=== PATIENT | female | born 1975 | race Caucasian/White ===

== ENCOUNTER 2020-10-15 19:23 | Outpatient (REF) | payer OTHER, SELFPAY ==
[2020-10-15 20:14] LABS: COVID-19 Test Negative (Negative); IDNOW Serial# 08D9AD1C
== END 2020-10-15 19:24 | disposition home or self-care (01) ==
LOC: HO.LAB 19:23
PROVIDERS: Visit Provider Internal Medicine
DX: Z20.822 Contact with and (suspected) exposure to COVID-19 (principal)
CPT/HCPCS: 36415; 87635

== ENCOUNTER 2022-02-07 19:04 | Inpatient (IN) | payer OTHER, SELFPAY ==
--- NOTE | ~2022-02-07 | CT_ITS ---
EXAMINATION: CT ANGIOGRAM HEAD CT ANGIOGRAM NECK CLINICAL INFORMATION: Reason for Exam ?cva COMPARISON: Earlier same day noncontrast head CT TECHNIQUE: Initial noncontrast manager sap imaging of the head and neck was performed. Comparison is made with noncontrast head CT from earlier today. Test bolus sequences followed by intravenous administration 70 mL of Omnipaque 350. Helical imaging was performed in the axial plane from the aortic arch to the skull vertex. Delayed postcontrast imaging of the head was also performed. The data was processed at the staff technologist's workstation for generation of MIP sequences. Angled MIPs and volume rendered reformatted images were also generated at an offline 3D workstation. Stenoses are assessed in accordance with NASCET criteria unless otherwise indicated. DLP: 1467 mGy-cm This CT examination was performed using dose optimization techniques as appropriate, variously including the following: *Automated exposure control. *Adjustment of mA and/or kV according to patient size (this includes techniques or standardized protocols for targeted exams where dose is matched to indication/reason for exam; i.e. extremities or head). *Use of iterative reconstruction technique. FINDINGS: CT Head: There is no evidence of acute intracranial hemorrhage or edematous territorial infarction. There is no abnormal attenuation within the brain parenchyma. Marion-white matter differentiation is preserved. The ventricles are normal in size and configuration. No evidence for obstructive hydrocephalus. No abnormal mass effect or midline shift. No extra-axial fluid collections. No pathologic intra-axial enhancement or regional oligemia. No acute soft tissue or osseous abnormalities. Degenerative changes of the right temporomandibular joint. CT Neck: Thyromegaly. No discrete thyroid nodule is identified. The remaining cervical soft tissues are within normal limits. No significant abnormalities of the cervical spine. CT Upper Chest: The visualized lung apices and upper mediastinum are within normal limits. CTA of the head and neck is somewhat technically limited due to motion degradation. Neck CTA: Aortic Arch: Normal contour and caliber. Classic 3 vessel branching pattern of the aortic arch. Great Vessel Origins: No significant stenosis of the branch origins. Right Common Carotid Artery: No focal stenosis or occlusion. Cervical Right Internal Carotid Artery: Normal opacification without focal stenosis or occlusion. Left Common Carotid Artery: No focal stenosis or occlusion. Cervical Left Internal Carotid Artery: Normal opacification without focal stenosis or occlusion. Cervical Right Vertebral Artery: No focal stenosis or occlusion. Cervical Left Vertebral Artery: No focal stenosis or occlusion. Brain CTA: Intracranial Internal Carotid Arteries: No focal stenosis or occlusion. Right Anterior Cerebral Artery: Normal A1 segment. Normal opacification of the distal JOLYNN segments. Left Anterior Cerebral Artery: Normal A1 segment. Normal opacification of the distal JOLYNN segments. Anterior Communicating Artery: Normal. Right Middle Cerebral Artery: Normal M1 segment of the MCA without focal stenosis or occlusion. Normal arborization of the distal segments. Left Middle Cerebral Artery: Normal M1 segment of the MCA without focal stenosis or occlusion. Normal arborization of the distal segments. Right Vertebral Artery: Normal V4 segment. Left Vertebral Artery: Normal V4 segment. Basilar Artery: Normal without focal stenosis or occlusion. Normal appearance of the proximal superior cerebellar arteries. Right Posterior Cerebral Artery: Normal P1 segment. Normal opacification of the distal SECTION HOUSEKEEPER segments. Left Posterior Cerebral Artery: Normal P1 segment. Normal opacification of the distal SECTION HOUSEKEEPER segments. Normal opacification of the superior sagittal, straight, transverse, and sigmoid sinuses. CT/CT angio head neck stroke IMPRESSION: 1. No arterial high grade stenosis or large vessel occlusion in the head or neck. 2. Thyromegaly. Recommend correlation with thyroid function tests. Impression #[address] Peng on 02/07/2022 at 7:39 PM.
--- NOTE | ~2022-02-07 | CT_ITS ---
EXAMINATION: CT head for stroke CLINICAL INFORMATION: Reason for Exam cva/seizure?? COMPARISON: None. TECHNIQUE: Contiguous axial imaging was performed from the skull base to vertex without intravenous contrast. Sagittal and coronal reformatted images were obtained. This CT examination was performed using dose optimization techniques as appropriate, variously including the following: * Automated exposure control * Adjustment of mA and/or kV according to patient size (this includes techniques or standardized protocols for targeted exams where dose is matched to indication/reason for exam; i.e. extremities or head) Use of iterative reconstruction technique DLP: 712 mGy-cm FINDINGS: No acute osseous or soft tissue abnormality. The mastoid air cells and visualized portions of the paranasal sinuses are well aerated. There is no evidence of acute intracranial hemorrhage or territorial infarction. No abnormal mass effect or midline shift is seen. Marion to white matter differentiation is well preserved. No extra-axial fluid collections are identified. No hydrocephalus. No significant volume loss. There is no abnormal attenuation within the brain parenchyma. Small hypodensity in the inferior right basal ganglia likely represents a prominent perivascular space. CT/CT head for stroke IMPRESSION: No acute intracranial abnormality including hemorrhage, mass effect, hydrocephalus, or acute territorial edematous infarction. Above impression was communicated to Dr. Peng on 02/07/2022 at 7:22 PM
--- NOTE | 2022-02-07 19:07 | ECG_ITS ---
Test Reason : STROKE Blood Pressure : / mmHG Vent. Rate : 088 BPM Atrial Rate : 000 BPM P-R Int : 000 ms QRS Dur : 078 ms QT Int : 388 ms P-R-T Axes : 000 050 058 degrees QTc Int : 469 ms Poor data quality Possible Normal sinus rhythm No previous ECGs available Repeat EKG Referred By: Jayjay Giang Electronically Signed By:KENNEDY MOCTEZUMA MD
[2022-02-07 19:12] VITALS: BP 146/70; PULSE 76; O2SAT 98; BMI 27.4
--- NOTE | 2022-02-07 19:14 | ED_ITS ---
HPI - Neuro Symptoms/Deficit General Chief Complaint: Stroke Stated Complaint: stroke alert Time Seen by Provider: 02/07/22 19:07 Source: EMS Mode of arrival: EMS Limitations: altered mental status History of Present Illness HPI Narrative: Patient is 46 years old brought by EMS for unresponsiveness possible stroke. Patient spoke to her mother at 16:00 on phone was worried about her colonoscopy tomorrow at 18:00 and family came they found her on the floor not responding with colonic spasm of the both upper extremities pale vomiting when patient in the ER patient was having clonic movements of the both upper extremities with increased tone not communicating no incontinence , EMS found empty bottle of Pinrid in her backpack. Related Data Home Medications Medication Instructions Recorded Confirmed bimatoprost 0.01 % eye drops 1 drp ophthalmic (eye) BEDTIME 02/07/22 (Lumigan) brimonidine 0.2 % eye drops 1 drp ophthalmic (eye) BID 02/07/22 cyclosporine 0.05 % eye drops in a 1 drp ophthalmic (eye) BID 02/07/22 dropperette (Restasis) dorzolamide 22.3 mg-timolol 6.8 1 drp ophthalmic (eye) BID 02/07/22 mg/mL eye drops norgestimate-ethinyl estradiol 1 tab PO DAILY 02/07/22 0.18 mg/0.215mg/0.25mg-35 mcg(28)tablet (Tri-Estarylla) Allergies Allergy/AdvReac Type Severity Reaction Status Date / Time No Known Allergies Allergy Mild NONE Unverified 11/19/19 14:57 Environmental Allergy Mild SNEEZING, Uncoded 11/19/19 14:57 WATERY EYES Review of Systems Review of Systems: Yes Unobtainable due to mental status [facility] Past Medical History Medical History Glaucoma Social History Social History Advance Directives: No Advance Directives Information Provided: No Physical Exam Vital Signs: Vital Signs: Last Vital Signs Temp 98.2 F 02/07/22 22:39 Pulse 95 02/07/22 22:39 Resp 20 02/07/22 22:39 BP 118/97 H 02/07/22 22:39 Pulse Ox 93 02/07/22 22:39 O2 Del Method 02/07/22 22:39 BMI result Body Mass Index 27.4 Appearance: Alert. Not communicating Eyes: PERRLA, No Nystagmus ENT: Pharynx normal. Oral Mucosa moist Neck: Normal inspection. Neck supple. CVS: Normal heart rate and rhythm. Pulses normal. Respiratory: No respiratory distress. Equal air entry bilateral, no wheezing/rales/rhonchi Abdomen: Soft and nontender. Bowel sounds are present, no mass palpable, no CVA tenderness Skin: Skin warm and dry. Normal skin color. Normal skin turgor. Extremities: No lower extremity edema. No calf tenderness Neuro: Increased tone of upper extremities Course Reevaluation(s) Reevaluation #1: Patient's CT scan of the head negative for CVA on further evaluation seems like patient has anxiety panic attack after been worried for colonoscopy tomorrow IV Versed was given will re-evaluate will check labs to rule out any metabolic cause Time: 19:32 Medications Administered Generic Name Dose Route Start Last Admin Trade Name Freq PRN Reason Stop Dose Admin Enoxaparin Sodium 40 mg 02/07/22 23:45 02/08/22 00:57 Enoxaparin Sodium 40 Mg/0.4 Ml Syringe SUBCUT 40 mg Q24H NATALIE Administration Sodium Chloride 3 ml 02/08/22 00:00 02/08/22 01:03 0.9 % Sodium Chloride Flush 3 Ml Syringe IVFLUSH Not Given QSHIFT NATALIE Discontinued Medications Generic Name Dose Route Start Last Admin Trade Name Freq PRN Reason Stop Dose Admin Sodium Chloride 1,000 mls @ 999 mls/hr 02/07/22 19:15 02/07/22 22:38 Ns IV 02/07/22 20:15 Infused .Q1H1M ONE Infusion Sodium Chloride 1,000 mls @ 999 mls/hr 02/07/22 21:16 02/07/22 22:07 Ns IV 02/07/22 22:16 999 mls/hr .Q1H1M ONE Administration Iohexol 100 ml 02/07/22 19:29 02/07/22 19:29 Iohexol 350 Mg/Ml 100 Ml Infus..Btl IV 02/07/22 19:30 70 ml ONCE ONE Administration Lorazepam 1 mg 02/07/22 21:11 02/07/22 22:05 Lorazepam 1 Mg Tablet PO 02/07/22 21:12 1 mg ONCE ONE Administration Midazolam HCl 1 mg 02/07/22 19:12 02/07/22 19:34 Midazolam Hcl/Pf 2 Mg/2 Ml Vial IVPUSH 02/07/22 19:13 1 mg ONCE ONE Administration Medical Decision Making Medical Decision Making [facility] Narrative: Patient scheduled for colonoscopy history of glaucoma and anxiety drinking lot of water at home and started getting prepped for colonoscopy tomorrow noted to be having acute mental status change with vomiting at home lab workup showed sodium of 120 with low serum osmolality low urine osmolality and low sodium in the urine suggestive of increased water intake, hypotonic hyponatremia will admit patient for acute hypotension with confusion with free water restriction patient had CTH and CTA head and neck negative for acute pathology Lab Attestation: I reviewed the patient's lab results. Independent interpretation of EKG, rhythm strip, radiology study: Independent interp EKG,rhythm strip, radiology study My interpretation is Discharge Plan Discharge Clinical Impression: Encephalopathy, Acute hyponatremia Patient Disposition: Admitted As Inpatient
[2022-02-07] MEDS: iohexoL 350 MG/ML 100 ML INFUS..BTL IV (19:29)
[2022-02-07] MEDS: 0.9 % Sodium Chloride 1,000 ML 999 ML IV ×2 (19:33→22:07)
[2022-02-07] MEDS: Midazolam HCl/PF 2 MG/2 ML VIAL 1 MG IVPUSH (19:34)
[2022-02-07 19:35] LABS: Prothrombin Time Whole Bld POC 11.9 sec (11.1-13.5)
[2022-02-07 19:54] LABS: Glucose, Whole Blood 132 mg/dL (60-115)
[2022-02-07 20:30] LABS: MANUAL DIFF FLAG NO
[2022-02-07 20:45] LABS: Basophils Percent Auto 0.2 % (0-2); Hematocrit 35.4 % (37.0-47.0); Hemoglobin 13.1 g/dl (12.0-16.0); Imm Gran Abs Auto 0.03 X10*3/uL (0.00-0.03); Imm Gran Pct Auto 0.3 % (0.0-0.4); Lymphocytes Percent Auto 9.8 % (20-40); Mean Corpuscular Hemoglobin 30.2 pg (27.0-33.0); Mean Corpuscular Volume 81.6 fL (80.0-98.0); Mean Platelet Volume 11.1 fL (9.4-12.3); Monocytes Absolute Auto 0.3 X10*3/uL (0.1-1.2); Monocytes Percent Auto 2.5 % (2-11); Neutrophils Absolute Auto 8.8 x10*3/uL (2.0-8.3); Neutrophils Percent Auto 87.2 % (45-73); Platelet Count 207 X10*3/uL (160-400); Red Blood Count 4.34 X10*6/uL (4.20-5.50); Red Cell Distribution Width 11.8 % (11.0-16.0)
[2022-02-07 20:47] LABS: COVID-19 Test Negative (Negative); IDNOW Serial# BCCEAD1C
[2022-02-07 20:55] LABS: Stroke Lab Use COMPLETE
[2022-02-07 20:57] LABS: Troponin-I High Sensitivity < 3.5 ng/L (<3.5-17.0)
[2022-02-07 21:16] LABS: Anion Gap 14 (12-20); Blood Urea Nitrogen 6 mg/dL (9-16); Calcium 7.6 mg/dL (8.4-10.2); Carbon Dioxide 20 mmol/L (22-29); Chloride 89 mmol/L (96-108); Creatinine Clr Calc Pharmacy 93.4; Estimated Glomerular Filt Rate > 60; Glucose Random 115 mg/dL (60-115); Potassium 3.9 mmol/L (3.3-5.1); Sodium 120 mmol/L (135-145)
[2022-02-07 21:35] LABS: Osmolality, Serum 245 mosm/kg (281-305)
[2022-02-07 21:35] LABS: Appearance Urine Clear; Color Urine Yellow; Glucose Urine UA Negative (Negative); Leukocyte Esterase Urine Negative (Negative); Nitrite Urine Negative (Negative); PH 7.5 (5.0-9.0); Specific Gravity - Urine 1.015 (1.005-1.025); Urine Blood Negative (Negative); Urine Ketones Negative (Negative); Urine Protein Negative (Neg-Trace)
[2022-02-07 21:51] LABS: Osmolality Urine 121 mosm/kg (373-1093)
[2022-02-07] MEDS: LORazepam 1 MG TABLET PO (22:05)
[2022-02-07 22:37] VITALS: BP 132/68; PULSE 81; RESP 24; TEMP 36.6; O2SAT 94
[2022-02-07 22:39] VITALS: BP 118/97; PULSE 95; RESP 20; TEMP 36.8; O2SAT 93
--- NOTE | 2022-02-08 00:10 | P.HPHOSP_ITS ---
History of Present Illness Date of Service: 02/08/22 Chief Complaint: Altered mentation This is a 46-year-old female with pertinent history of glaucoma who was brought to the emergency department for evaluation of confusion. As per the sister at bedside, patient was not answering the phone and she used his spare villa to go into the patient's house. They found her on the floor, confused and with ?shaking/chills of the upper extremity. No tongue bite, no urinary or bowel incontinence. Patient also complains of nausea and vomiting throughout the day. Patient states she was scheduled for colonoscopy tomorrow but had not taken the prep. As per chart review, EMS found empty bottle of Pinrid? in her backpack . At the time of my evaluation, patient answering occasional questions with yes or no responses. Lethargy present and patient unable to take part in full conversation, she is oriented to place but disoriented to time. No loss of consciousness. In the emergency department sodium was found to be 120 Review of Systems Review of Systems: Yes Unobtainable due to mental status PMFSH Medical History Glaucoma Functional capacity: independent ambulation Pertinent family history: Unable to answer due to mentation Social History Advance Directives: No Advance Directives Information Provided: No Meds Allergies Allergy/AdvReac Type Severity Reaction Status Date / Time No Known Allergies Allergy Mild NONE Unverified 11/19/19 14:57 Environmental Allergy Mild SNEEZING, Uncoded 11/19/19 14:57 WATERY EYES Active Medications: Current Medications Acetaminophen (Acetaminophen 325 Mg Tablet) 650 mg PO Q6H PRN PRN Reason: Pain, Mild (Pain Scale 1-3) Enoxaparin Sodium (Enoxaparin Sodium 40 Mg/0.4 Ml Syringe) 40 mg SUBCUT Q24H NATALIE Melatonin (Melatonin 3 Mg Tablet) 6 mg PO BEDTIME PRN PRN Reason: Insomnia Ondansetron HCl (Ondansetron Hcl 4 Mg/2 Ml Vial) 4 mg IVPUSH Q8H PRN PRN Reason: Nausea and Vomiting Pharmacy Consult (Consult Rx Perform Med Rec) 1 each MISCELLANE ONCE PRN PRN Reason: Consult order Sodium Chloride (0.9 % Sodium Chloride Flush 3 Ml Syringe) 3 ml IVFLUSH QSHIFT [facility] Home Medications Medication Instructions Recorded Confirmed Last Taken Type bimatoprost 0.01 % eye drops 1 drp ophthalmic (eye) BEDTIME 02/07/22 Unknown History (Lumigan) brimonidine 0.2 % eye drops 1 drp ophthalmic (eye) BID 02/07/22 Unknown History cyclosporine 0.05 % eye drops in a 1 drp ophthalmic (eye) BID 02/07/22 Unknown History dropperette (Restasis) dorzolamide 22.3 mg-timolol 6.8 1 drp ophthalmic (eye) BID 02/07/22 Unknown History mg/mL eye drops norgestimate-ethinyl estradiol 1 tab PO DAILY 02/07/22 Unknown History 0.18 mg/0.215mg/0.25mg-35 mcg(28)tablet (Tri-Estarylla) Physical Exam Vital Signs and Narrative: Vital Signs: Last Vital Signs Temp 98.2 F 02/07/22 22:39 Pulse 95 02/07/22 22:39 Resp 20 02/07/22 22:39 BP 118/97 H 02/07/22 22:39 Pulse Ox 93 02/07/22 22:39 O2 Del Method 02/07/22 22:39 BMI result Body Mass Index 27.4 Middle-aged female lying in bed in no distress Neck supple, no JVD Regular rate and rhythm, S1-S2 heard Regular breath sounds bilaterally, no wheezing or crackles appreciated Abdomen soft nontender, no guarding, no rigidity Patient is drowsy and eye opening to verbal stimulus, intermittently answering with yes or no responses, non conversational Psych: Lethargic No pedal edema Results Labs CBC and Chem 7: 02/07/22 20:27 02/07/22 20:26 Labs: Laboratory Results - last 24 hr 02/07/22 02/07/22 02/07/22 19:09 19:22 20:26 MCV MCH MCHC RDW Plt Count MPV Immature Gran % (Auto) Neut % (Auto) Lymph % (Auto) [place] % (Auto) Eos % (Auto) Baso % (Auto) Lymph # (Auto) [place] # (Auto) Eos # (Auto) Baso # (Auto) Abs Immat Gran (auto) Absolute Neuts (auto) Absolute Nucleated RBC Nucleated RBC % (auto) PT 12.0 Whole Blood PT 11.9 INR 1.0 Whole Blood INR 1.0 Anion Gap Estim Creat Clear Calc Estimated GFR POC Glucose 132 H Random Glucose Osmolality Calcium Troponin I High Sens Hold Red Top Urine Color Urine Appearance Urine pH Ur Specific [place] Urine Protein Urine Glucose (UA) Urine Ketones Urine Blood Urine Nitrite Ur Leukocyte Esterase Urine Osmolality Ur Random Sodium COVID-19 (KHADRA) COVID-19 [employer] 02/07/22 02/07/22 02/07/22 20:26 20:26 20:26 MCV MCH MCHC RDW Plt Count MPV Immature Gran % (Auto) Neut % (Auto) Lymph % (Auto) [place] % (Auto) Eos % (Auto) Baso % (Auto) Lymph # (Auto) [place] # (Auto) Eos # (Auto) Baso # (Auto) Abs Immat Gran (auto) Absolute Neuts (auto) Absolute Nucleated RBC Nucleated RBC % (auto) PT Whole Blood PT INR Whole Blood INR Anion Gap 14 Estim Creat Clear Calc 93.4 Estimated GFR > 60 POC Glucose Random Glucose 115 Osmolality Calcium 7.6 L Troponin I High Sens < 3.5 Hold Red Top See Note Urine Color Urine Appearance Urine pH Ur Specific [place] Urine Protein Urine Glucose (UA) Urine Ketones Urine Blood Urine Nitrite Ur Leukocyte Esterase Urine Osmolality Ur Random Sodium COVID-19 (KHADRA) COVID-19 [employer] 02/07/22 02/07/22 02/07/22 20:26 20:27 20:27 MCV 81.6 MCH 30.2 MCHC 37.0 H RDW 11.8 Plt Count 207 MPV 11.1 Immature Gran % (Auto) 0.3 Neut % (Auto) 87.2 H Lymph % (Auto) 9.8 L [place] % (Auto) 2.5 Eos % (Auto) 0.0 Baso % (Auto) 0.2 Lymph # (Auto) 1.0 L [place] # (Auto) 0.3 Eos # (Auto) 0.0 Baso # (Auto) 0.0 Abs Immat Gran (auto) 0.03 Absolute Neuts (auto) 8.8 H Absolute Nucleated RBC 0.000 Nucleated RBC % (auto) 0.0 PT Whole Blood PT INR Whole Blood INR Anion Gap Estim Creat Clear Calc Estimated GFR POC Glucose Random Glucose Osmolality 245 L Calcium Troponin I High Sens Hold Red Top Urine Color Urine Appearance Urine pH Ur Specific [place] Urine Protein Urine Glucose (UA) Urine Ketones Urine Blood Urine Nitrite Ur Leukocyte Esterase Urine Osmolality Ur Random Sodium COVID-19 (KHADRA) Negative COVID-19 Clin Com See Note 02/07/22 02/07/22 02/07/22 21:29 21:29 Unknown MCV MCH MCHC RDW Plt Count MPV Immature Gran % (Auto) Neut % (Auto) Lymph % (Auto) [place] % (Auto) Eos % (Auto) Baso % (Auto) Lymph # (Auto) [place] # (Auto) Eos # (Auto) Baso # (Auto) Abs Immat Gran (auto) Absolute Neuts (auto) Absolute Nucleated RBC Nucleated RBC % (auto) PT Whole Blood PT INR Whole Blood INR Anion Gap Estim Creat Clear Calc Estimated GFR POC Glucose Random Glucose Osmolality Calcium Troponin I High Sens Hold Red Top Urine Color Yellow Urine Appearance Clear Urine pH 7.5 Ur Specific [place] 1.015 Urine Protein Negative Urine Glucose (UA) Negative Urine Ketones Negative Urine Blood Negative Urine Nitrite Negative Ur Leukocyte Esterase Negative Urine Osmolality 121 L Ur Random Sodium 26.0 COVID-19 (KHADRA) COVID-19 Clin Com Imaging Radiologist's Impressions: Impressions Head CT 02/07/22 19:13 IMPRESSION: No acute intracranial abnormality including hemorrhage, mass effect, hydrocephalus, or acute territorial edematous infarction. Above impression was communicated to Dr. Peng on 02/07/2022 at 7:22 PM Head/Neck CTA 02/07/22 19:22 IMPRESSION: 1. No arterial high grade stenosis or large vessel occlusion in the head or neck. 2. Thyromegaly. Recommend correlation with thyroid function tests. Impression #[address] Peng on 02/07/2022 at 7:39 PM. Assessment and Plan (1) Encephalopathy: Status: Acute (2) Hyponatremia: Status: Acute Plan This is a 46-year-old female with pertinent history of glaucoma who was brought to the emergency department for evaluation of confusion. #. Acute metabolic encephalopathy due to: #. Hypotonic hypovolemic hyponatremia -monitor mentation with sodium correction. Received IV crystalloids in the ER. Unclear chronicity of hyponatremia, will prevent over-correction. Monitor BNP every 4 hours. -Consider MRI and EEG if mentation does not improve with sodium correction #. Glaucoma: Continue eyedrops DVT prophylaxis: Lovenox 40 mg daily Regular diet Full code Admit as inpatient for hyponatremia with close monitoring of electrolytes and mentation. Quality Stroke Does the patient have a stroke diagnosis?: No VTE Prior VTE?: No VTE Risk Level:: Medical - moderate - high VTE Device Contraindication: Treatment Not Indicated VTE Drug Contraindication: N/A - Med Ordered
--- NOTE | 2022-02-08 00:19 | PC.NURSE ---
This armorer technician placed bedpan for patient. Patient void. Changed pad and patients vince. Boost patient with the social science research assistant from RN. Explained to patient about the purewick before placing the purewick. Patient comfortable.
--- NOTE | 2022-02-08 00:34 | PC.NURSE ---
Pt. resting in bed with sister at bedside. Pt. is alert and oriented X4, however, doesn't recollect all the events that brought her to the ER. Pt. requesting to urinate frequently. D/t risk for skin breakdown, purewick now in place. threat monitoring analyst in place.
--- NOTE | 2022-02-08 00:42 | PC.NURSE ---
Pt. has a bed on med-surge. [id number]. Called for report. Floor RN will call for report.
[2022-02-08] MEDS: Enoxaparin Sodium 40 MG/0.4 ML SYRINGE SUBCUT (00:57)
[2022-02-08 01:12] LABS: Anion Gap 15 (12-20); Carbon Dioxide 18 mmol/L (22-29); Chloride 100 mmol/L (96-108); Potassium 3.8 mmol/L (3.3-5.1); Sodium 129 mmol/L (135-145)
[2022-02-08 01:34] VITALS: BMI 34.2
[2022-02-08 01:42] VITALS: BP 118/55; PULSE 96; RESP 22; TEMP 37.3; O2SAT 94
[2022-02-08 02:30] LABS: Anion Gap 14 (12-20); Blood Urea Nitrogen 5 mg/dL (9-16); Calcium 7.7 mg/dL (8.4-10.2); Carbon Dioxide 19 mmol/L (22-29); Chloride 101 mmol/L (96-108); Creatinine Clr Calc Pharmacy 98.6; Estimated Glomerular Filt Rate > 60; Glucose Random 129 mg/dL (60-115); Potassium 3.7 mmol/L (3.3-5.1); Sodium 130 mmol/L (135-145)
[2022-02-08 04:00] VITALS: RESP 20
[2022-02-08 07:12] VITALS: BP 118/55; PULSE 101; RESP 16; TEMP 36.6; O2SAT 96
[2022-02-08 07:27] LABS: MANUAL DIFF FLAG NO
[2022-02-08 07:35] LABS: Basophils Percent Auto 0.3 % (0-2); Hematocrit 33.6 % (37.0-47.0); Hemoglobin 12.1 g/dl (12.0-16.0); Imm Gran Abs Auto 0.07 X10*3/uL (0.00-0.03); Imm Gran Pct Auto 0.4 % (0.0-0.4); Mean Corpuscular Hemoglobin 30.3 pg (27.0-33.0); Mean Corpuscular Volume 84.2 fL (80.0-98.0); Mean Platelet Volume 11.7 fL (9.4-12.3); Monocytes Absolute Auto 0.8 X10*3/uL (0.1-1.2); Monocytes Percent Auto 5.3 % (2-11); Platelet Count 180 X10*3/uL (160-400); Red Blood Count 3.99 X10*6/uL (4.20-5.50)
[2022-02-08 08:18] LABS: Anion Gap 13 (12-20); Blood Urea Nitrogen 5 mg/dL (9-16); Calcium 7.9 mg/dL (8.4-10.2); Carbon Dioxide 20 mmol/L (22-29); Chloride 105 mmol/L (96-108); Creatinine Clr Calc Pharmacy 98.6; Estimated Glomerular Filt Rate > 60; Glucose Random 122 mg/dL (60-115); Potassium 3.5 mmol/L (3.3-5.1); Sodium 134 mmol/L (135-145)
[2022-02-08] MEDS: 0.9 % Sodium Chloride Flush 3 ML SYRINGE IVFLUSH (08:25)
[2022-02-08 09:31] LABS: Alanine Aminotransferase 11 U/L (0-31); Albumin Level 3.3 g/dL (3.5-5.0); Alkaline Phosphatase 75 U/L (39-117); Aspartate Amino Transferase 16 U/L (5-31); Bilirubin Direct 0.3 mg/dL (0.0-0.5); Bilirubin Total 0.9 mg/dL (0.0-1.0); Total Protein 5.8 g/dL (6.5-8.0)
[2022-02-08] MEDS: Dextrose 5 % 1,000 ML 100 ML IVCONT (09:45)
[2022-02-08] MEDS: Cholecalciferol (Vitamin D3) 25 MCG TABLET PO (09:47)
[2022-02-08 09:53] LABS: TSH reflex Free T4 0.36 uIU/mL (0.32-4.0)
--- NOTE | 2022-02-08 10:01 | MHC.CM.PN ---
PATIENT IS FULLY INDEPENDENT WITH ALL ADLS. NO DME OR VNA SHE WAS SCHEDULED FOR A COLONOSCOPY AND DRANK WAY TOO MUCH WATER HER FATHER IS HCP AND A COPY IS REQUESTED. PLAN IS HOME FRIDAY 02/09 AND SHE HAS A RIDE HOME. COVID VACCINATED. PCP IS DIOGO CHRISTIANSEN OF [facility] IN [place] QUICK TASK UPDATE MADE FOR CM OFFICE.
[2022-02-08 11:03] LABS: Osmolality, Serum 284 mosm/kg (281-305)
[2022-02-08 11:05] LABS: Acetaminophen LAB < 1 mcg/mL (<30); Salicylate < 5.0 mg/dL (15-30); Sodium 137 mmol/L (135-145)
--- NOTE | 2022-02-08 11:37 | P.CONNP_ITS ---
History of Present Illness Reason for Consult Consult date: 02/08/22 Chief Complaint Chief complaint: Altered Mentation PMFSH Past Medical History Medical History Glaucoma Functional capacity: independent ambulation Social History Social History Household Members: None Housing: Apartment Patient Tobacco Use Status: Former Tobacco user service: No Current occupational status: employed Meds Allergies Allergy/AdvReac Type Severity Reaction Status Date / Time No Known Allergies Allergy Mild NONE Unverified 11/19/19 14:57 Environmental Allergy Mild SNEEZING, Uncoded 11/19/19 14:57 WATERY EYES Active Medications: Current Medications Acetaminophen (Acetaminophen 325 Mg Tablet) 650 mg PO Q6H PRN PRN Reason: Pain, Mild (Pain Scale 1-3) Brimonidine Tartrate (Brimonidine Tartrate 0.2% Oph 5 Ml Bottle) 1 drop EYE- BOTH BID NATALIE Dorzolamide/Timolol (Dorzolamide/Timolo 2.23%/0.68% 10 Ml Drbtl) 1 drop EYE- BOTH BID NATALIE Enoxaparin Sodium (Enoxaparin Sodium 40 Mg/0.4 Ml Syringe) 40 mg SUBCUT Q24H [facility] Last Admin: 02/08/22 00:57 Dose: 40 mg Dextrose (D5w) 1,000 mls @ 100 mls/hr IVCONT .Q10H [facility] Last Admin: 02/08/22 09:45 Dose: 100 mls/hr Desmopressin Acetate 2 mcg/ (Sodium Chloride) 50.5 mls @ 100 mls/hr IV ONCE ONE Stop: 02/08/22 12:00 Melatonin (Melatonin 3 Mg Tablet) 6 mg PO BEDTIME PRN PRN Reason: Insomnia Non-Formulary Medication (Bimatoprost [Lumigan]) 1 drop EYE-BOTH BEDTIME NATALIE Non-Formulary Medication (Cyclosporine [Restasis]) 1 drop EYE-BOTH BID NATALIE Non-Formulary Medication (Norgestimate-Ethinyl Estradiol [Tri-Estarylla]) 1 tab PO DAILY NATALIE Ondansetron HCl (Ondansetron Hcl 4 Mg/2 Ml Vial) 4 mg IVPUSH Q8H PRN PRN Reason: Nausea and Vomiting Pharmacy Consult (Consult Rx Perform Med Rec) 1 each MISCELLANE ONCE PRN PRN Reason: Consult order Sodium Chloride (0.9 % Sodium Chloride Flush 3 Ml Syringe) 3 ml IVFLUSH QSHIFT [facility] Last Admin: 02/08/22 08:25 Dose: 3 ml Vitamin D (Cholecalciferol (Vitamin D3) 25 Mcg Tablet) 25 mcg PO DAILY [facility] Last Admin: 02/08/22 09:47 Dose: 25 mcg Home Medications Medication Instructions Recorded Confirmed Last Taken Type bimatoprost 0.01 % eye drops 1 drp ophthalmic (eye) BEDTIME 02/07/22 02/08/22 02/07/22 History (Lumigan) brimonidine 0.2 % eye drops 1 drp ophthalmic (eye) BID 02/07/22 02/08/22 02/07/22 History cyclosporine 0.05 % eye drops in a 1 drp ophthalmic (eye) BID 02/07/22 02/08/22 02/07/22 History dropperette (Restasis) dorzolamide 22.3 mg-timolol 6.8 1 drp ophthalmic (eye) BID 02/07/22 02/08/22 02/07/22 History mg/mL eye drops norgestimate-ethinyl estradiol 1 tab PO DAILY 02/07/22 02/08/22 02/07/22 History 0.18 mg/0.215mg/0.25mg-35 mcg(28)tablet (Tri-Estarylla) cholecalciferol (vitamin D3) 25 25 mcg PO DAILY 02/08/22 02/08/22 02/07/22 History mcg (1,000 unit) tablet Physical Exam Vital Signs: Last Vital Signs Temp 97.9 F 02/08/22 07:12 Pulse 101 H 02/08/22 07:12 Resp 16 02/08/22 07:12 BP 118/55 L 02/08/22 07:12 Pulse Ox 96 02/08/22 07:12 O2 Del Method 02/08/22 07:12 BMI result Body Mass Index 34.2 Results Lab Results Result Diagrams: 02/09/22 05:50 02/10/22 05:46 Lab results: Chemistry 02/07/22 02/08/22 02/08/22 20:26 00:42 02:03 Sodium 120 L* 129 L 130 L Potassium 3.9 3.8 3.7 Carbon Dioxide 20 L 18 L 19 L BUN 6 L 5 L Creatinine 0.68 0.72 Calcium 7.6 L 7.7 L 02/08/22 02/08/22 06:39 10:03 Sodium 134 L 137 Potassium 3.5 Carbon Dioxide 20 L BUN 5 L Creatinine 0.72 Calcium 7.9 L Hematology 02/07/22 02/08/22 20:27 06:39 WBC 10.0 16.0 H Hgb 13.1 12.1 Plt Count 207 180 Urinalysis 02/07/22 Unknown Urine Color Yellow Urine Appearance Clear Urine pH 7.5 Ur Specific [place] 1.015 Urine Protein Negative Urine Glucose (UA) Negative Urine Ketones Negative Urine Blood Negative Urine Nitrite Negative Ur Leukocyte Esterase Negative Urine Studies 02/07/22 21:29 Urine Osmolality 121 L Assessment and Plan (1) Hyponatremia: Status: Acute Plan SEVERE HYPONATREMIA DUE TO EXCESSIVE FREE WATER INTAKE IN A SETTING OF NAUSEA Low urine Osm/dilute urine : supports a dilute urine She is spontaneously excreting free water and correcting pNa At risk for rapid correction Start D5W Add 1 dose of DDAVP Check pNa Q 1-2 hrs Goal to keep pNa between 130- 13 over the next 24 hrs Discussed with team Consult dictated Thanks Procedures Date of Service Date of Service: 02/08/22
[2022-02-08 12:14] LABS: Cortisol Random 23.1 ug/dL
--- NOTE | 2022-02-08 13:22 | CONS_ITS ---
DATE OF SERVICE: 02/08/2022 REASON FOR CONSULT: I was called to see this patient to assist in management of hyponatremia. HISTORY OF PRESENT ILLNESS: To summarize, Rita is a pleasant 46-year-old woman with a history of glaucoma. She had no other renal issues. She was preparing for a colonoscopy and she had to get up on herself and started drinking lots of water. She was found by her sister at home and she was brought to the hospital because of confusion. At the time of admission, serum sodium was 120. I was called to see her this morning, and by that time, the serum sodium has already increased to 130 millimoles within 10 hours. I spoke to the hospitalist and we started her on D5W and ordered a stat sodium level. ONGOING MEDICAL PROBLEMS: Include history of glaucoma. PAST SURGICAL HISTORY: Unremarkable. ALLERGIES: NO KNOWN DRUG ALLERGIES. MEDICATIONS: At home included eye drops for glaucoma and control pills. Current medications were reviewed. REVIEW OF SYSTEMS: Revealed nausea and vomiting throughout the day. She did have confusion at the time of admission, which is improved. At present. She has no headache or nausea. No fever. She denies any polyuria or polydipsia. No diarrhea. She did have some constipation prior to admission. No fever. No weight loss. PHYSICAL EXAMINATION: GENERAL: Today, Rita appears comfortable, not in distress. NECK: Supple. No JVD. HEENT: Mucosa is moist. LUNGS: Air entry equal. No rales. HEART: S1, S2 heard. No gallop or rub. ABDOMEN: Soft, nontender. EXTREMITIES: No dependent edema. No rash. No clubbing. NEURO: She is alert and awake. Able to answer questions relevantly. No focal motor deficit. Gait was not tested. No involuntary movements. LABORATORY DATA: Sodium 134, potassium 2.3, BUN 5, creatinine 0.72, blood sugar 122, calcium 7.9. TSH is 0.36. Urine studies showed urine osmolality 121, no protein or blood. Hemoglobin 12.1, WBC 16.0. IMPRESSION: 46-year-old woman with acute hyponatremia. Hyponatremia is most likely due to excessive free water intake in the setting of nausea. Nausea is a potent stimulus for antidiuretic hormone. Again this background when she has been drinking lots of free water, she has developed hyponatremia. The urine osmolality is appropriately low at 121, and she is excreting free water spontaneously. She is at a risk of rapid correction. The repeat serum sodium was 137, therefore we will continue with the D5W and ordered DDAVP. The goal at this point is to slow the correction of serum sodium. We will continue with the D5W for now and check serum sodium every 1-2 hours. I have spoken to the hospitalist and ordered a dose of DDAVP. The goal is to maintain the serum sodium less than 135 for the next 24 hours. We will follow along with the team. Jorge Luis Lara MD BPA/MODL / [id number]
[2022-02-08 14:35] LABS: Sodium 139 mmol/L (135-145)
[2022-02-08 15:49] VITALS: BP 113/55; PULSE 103; RESP 17; TEMP 36.6; O2SAT 96
--- NOTE | 2022-02-08 16:14 | P.PNIM_ITS ---
Subjective Subjective Date of Service: 02/08/22 Interval History: Pt alert, awake now No recall of how she ended up on the floor No oral trauma No incontinence No toxic ingestions No hx seizures Na correcting too fast She drinks a lot of water and Gatorade Review of Systems Review of Systems: Yes all other systems are reviewed and are negative Physical Exam Vital Signs: Vital Signs: Last Vital Signs Temp 97.9 F 02/08/22 15:49 Pulse 103 H 02/08/22 15:49 Resp 17 02/08/22 15:49 BP 113/55 L 02/08/22 15:49 Pulse Ox 96 02/08/22 15:49 O2 Del Method 02/08/22 15:49 BMI result Body Mass Index 34.2 Gen: in no acute distress HEENT: sclera anicteric, moist mucus membranes Neck: supple Lungs: clear to auscultation bilaterally Heart: regular rate and rhythm, no murmurs Abd: soft, non-tender, non-distended Ext: no edema Skin: warm/well-perfused Neuro: alert and oriented x3, no focal findings Psych: appropriate affect Objective Data Active Medications Acetaminophen (Acetaminophen 325 Mg Tablet) 650 mg PO Q6H PRN PRN Reason: Pain, Mild (Pain Scale 1-3) Brimonidine Tartrate (Brimonidine Tartrate 0.2% Oph 5 Ml Bottle) 1 drop EYE- BOTH BID NATALIE Dorzolamide/Timolol (Dorzolamide/Timolo 2.23%/0.68% 10 Ml Drbtl) 1 drop EYE- BOTH BID NATALIE Enoxaparin Sodium (Enoxaparin Sodium 40 Mg/0.4 Ml Syringe) 40 mg SUBCUT Q24H [facility] Last Admin: 02/08/22 00:57 Dose: 40 mg Documented By: CRESENCIO Dextrose (D5w) 1,000 mls @ 150 mls/hr IVCONT .Q6H40M [facility] Last Infusion: 02/08/22 15:26 Dose: 150 mls/hr Documented By: CLIFTON Melatonin (Melatonin 3 Mg Tablet) 6 mg PO BEDTIME PRN PRN Reason: Insomnia Non-Formulary Medication (Bimatoprost [Lumigan]) 1 drop EYE-BOTH BEDTIME NATALIE Non-Formulary Medication (Cyclosporine [Restasis]) 1 drop EYE-BOTH BID NATALIE Non-Formulary Medication (Norgestimate-Ethinyl Estradiol [Tri-Estarylla]) 1 tab PO DAILY [facility] Ondansetron HCl (Ondansetron Hcl 4 Mg/2 Ml Vial) 4 mg IVPUSH Q8H PRN PRN Reason: Nausea and Vomiting Pharmacy Consult (Consult Rx Perform Med Rec) 1 each MISCELLANE ONCE PRN PRN Reason: Consult order Sodium Chloride (0.9 % Sodium Chloride Flush 3 Ml Syringe) 3 ml IVFLUSH QSHIFT [facility] Last Admin: 02/08/22 08:25 Dose: 3 ml Documented By: CLIFTON Vitamin D (Cholecalciferol (Vitamin D3) 25 Mcg Tablet) 25 mcg PO DAILY [facility] Last Admin: 02/08/22 09:47 Dose: 25 mcg Documented By: CLIFTON Labs CBC & Chem 7: 02/08/22 06:39 02/08/22 14:00 Labs: Laboratory Results - last 24 hr 02/07/22 02/07/22 02/07/22 19:09 19:22 20:26 MCV MCH MCHC RDW Plt Count MPV Immature Gran % (Auto) Neut % (Auto) Lymph % (Auto) [place] % (Auto) Eos % (Auto) Baso % (Auto) Lymph # (Auto) [place] # (Auto) Eos # (Auto) Baso # (Auto) Abs Immat Gran (auto) Absolute Neuts (auto) Absolute Nucleated RBC Nucleated RBC % (auto) PT 12.0 Whole Blood PT 11.9 INR 1.0 Whole Blood INR 1.0 Anion Gap Estim Creat Clear Calc Estimated GFR POC Glucose 132 H Random Glucose Osmolality Calcium Total Bilirubin Direct Bilirubin AST ALT Alkaline Phosphatase Troponin I High Sens Total Protein Albumin TSH Random Cortisol Hold Red Top Urine Color Urine Appearance Urine pH Ur Specific [place] Urine Protein Urine Glucose (UA) Urine Ketones Urine Blood Urine Nitrite Ur Leukocyte Esterase Urine Osmolality Ur Random Sodium Salicylates Acetaminophen COVID-19 (KHADRA) COVID-19 Clin Com 02/07/22 02/07/22 02/07/22 20:26 20:26 20:26 MCV MCH MCHC RDW Plt Count MPV Immature Gran % (Auto) Neut % (Auto) Lymph % (Auto) [place] % (Auto) Eos % (Auto) Baso % (Auto) Lymph # (Auto) [place] # (Auto) Eos # (Auto) Baso # (Auto) Abs Immat Gran (auto) Absolute Neuts (auto) Absolute Nucleated RBC Nucleated RBC % (auto) PT Whole Blood PT INR Whole Blood INR Anion Gap 14 Estim Creat Clear Calc 93.4 Estimated GFR > 60 POC Glucose Random Glucose 115 Osmolality Calcium 7.6 L Total Bilirubin Direct Bilirubin AST ALT Alkaline Phosphatase Troponin I High Sens < 3.5 Total Protein Albumin TSH Random Cortisol Hold Red Top See Note Urine Color Urine Appearance Urine pH Ur Specific [place] Urine Protein Urine Glucose (UA) Urine Ketones Urine Blood Urine Nitrite Ur Leukocyte Esterase Urine Osmolality Ur Random Sodium Salicylates Acetaminophen COVID-19 (KHADRA) COVID-19 [employer] Com 02/07/22 02/07/22 02/07/22 20:26 20:27 20:27 MCV 81.6 MCH 30.2 MCHC 37.0 H RDW 11.8 Plt Count 207 MPV 11.1 Immature Gran % (Auto) 0.3 Neut % (Auto) 87.2 H Lymph % (Auto) 9.8 L [place] % (Auto) 2.5 Eos % (Auto) 0.0 Baso % (Auto) 0.2 Lymph # (Auto) 1.0 L [place] # (Auto) 0.3 Eos # (Auto) 0.0 Baso # (Auto) 0.0 Abs Immat Gran (auto) 0.03 Absolute Neuts (auto) 8.8 H Absolute Nucleated RBC 0.000 Nucleated RBC % (auto) 0.0 PT Whole Blood PT INR Whole Blood INR Anion Gap Estim Creat Clear Calc Estimated GFR POC Glucose Random Glucose Osmolality 245 L Calcium Total Bilirubin Direct Bilirubin AST ALT Alkaline Phosphatase Troponin I High Sens Total Protein Albumin TSH Random Cortisol Hold Red Top Urine Color Urine Appearance Urine pH Ur Specific [place] Urine Protein Urine Glucose (UA) Urine Ketones Urine Blood Urine Nitrite Ur Leukocyte Esterase Urine Osmolality Ur Random Sodium Salicylates Acetaminophen COVID-19 (KHADRA) Negative COVID-19 [email or web address] See Note 02/07/22 02/07/22 02/07/22 21:29 21:29 Unknown MCV MCH MCHC RDW Plt Count MPV Immature Gran % (Auto) Neut % (Auto) Lymph % (Auto) [place] % (Auto) Eos % (Auto) Baso % (Auto) Lymph # (Auto) [place] # (Auto) Eos # (Auto) Baso # (Auto) Abs Immat Gran (auto) Absolute Neuts (auto) Absolute Nucleated RBC Nucleated RBC % (auto) PT Whole Blood PT INR Whole Blood INR Anion Gap Estim Creat Clear Calc Estimated GFR POC Glucose Random Glucose Osmolality Calcium Total Bilirubin Direct Bilirubin AST ALT Alkaline Phosphatase Troponin I High Sens Total Protein Albumin TSH Random Cortisol Hold Red Top Urine Color Yellow Urine Appearance Clear Urine pH 7.5 Ur Specific [place] 1.015 Urine Protein Negative Urine Glucose (UA) Negative Urine Ketones Negative Urine Blood Negative Urine Nitrite Negative Ur Leukocyte Esterase Negative Urine Osmolality 121 L Ur Random Sodium 26.0 Salicylates Acetaminophen COVID-19 (KHADRA) COVID-19 [email or web address] 02/08/22 02/08/22 02/08/22 00:42 02:03 06:39 MCV 84.2 MCH 30.3 MCHC 36.0 H RDW 12.0 Plt Count 180 MPV 11.7 Immature Gran % (Auto) 0.4 Neut % (Auto) 88.0 H Lymph % (Auto) 6.0 L [place] % (Auto) 5.3 Eos % (Auto) 0.0 Baso % (Auto) 0.3 Lymph # (Auto) 1.0 L [place] # (Auto) 0.8 Eos # (Auto) 0.0 Baso # (Auto) 0.0 Abs Immat Gran (auto) 0.07 H Absolute Neuts (auto) 14.0 H Absolute Nucleated RBC 0.000 Nucleated RBC % (auto) 0.0 PT Whole Blood PT INR Whole Blood INR Anion Gap 15 14 Estim Creat Clear Calc 98.6 Estimated GFR > 60 POC Glucose Random Glucose 129 H Osmolality Calcium 7.7 L Total Bilirubin 0.9 Direct Bilirubin 0.3 AST 16 ALT 11 Alkaline Phosphatase 75 Troponin I High Sens Total Protein 5.8 L Albumin 3.3 L TSH Random Cortisol Hold Red Top Urine Color Urine Appearance Urine pH Ur Specific [place] Urine Protein Urine Glucose (UA) Urine Ketones Urine Blood Urine Nitrite Ur Leukocyte Esterase Urine Osmolality Ur Random Sodium Salicylates Acetaminophen COVID-19 (KHADRA) COVID-19 [email or web address] 02/08/22 02/08/22 02/08/22 06:39 10:03 10:03 MCV MCH MCHC RDW Plt Count MPV Immature Gran % (Auto) Neut % (Auto) Lymph % (Auto) [place] % (Auto) Eos % (Auto) Baso % (Auto) Lymph # (Auto) [place] # (Auto) Eos # (Auto) Baso # (Auto) Abs Immat Gran (auto) Absolute Neuts (auto) Absolute Nucleated RBC Nucleated RBC % (auto) PT Whole Blood PT INR Whole Blood INR Anion Gap 13 Estim Creat Clear Calc 98.6 Estimated GFR > 60 POC Glucose Random Glucose 122 H Osmolality Calcium 7.9 L Total Bilirubin Direct Bilirubin AST ALT Alkaline Phosphatase Troponin I High Sens Total Protein Albumin TSH 0.36 Random Cortisol 23.1 Hold Red Top Urine Color Urine Appearance Urine pH Ur Specific [place] Urine Protein Urine Glucose (UA) Urine Ketones Urine Blood Urine Nitrite Ur Leukocyte Esterase Urine Osmolality Ur Random Sodium Salicylates < 5.0 L Acetaminophen < 1 COVID-19 (KHADRA) COVID-19 Clin Com 02/08/22 10:04 MCV MCH MCHC RDW Plt Count MPV Immature Gran % (Auto) Neut % (Auto) Lymph % (Auto) [place] % (Auto) Eos % (Auto) Baso % (Auto) Lymph # (Auto) [place] # (Auto) Eos # (Auto) Baso # (Auto) Abs Immat Gran (auto) Absolute Neuts (auto) Absolute Nucleated RBC Nucleated RBC % (auto) PT Whole Blood PT INR Whole Blood INR Anion Gap Estim Creat Clear Calc Estimated GFR POC Glucose Random Glucose Osmolality 284 Calcium Total Bilirubin Direct Bilirubin AST ALT Alkaline Phosphatase Troponin I High Sens Total Protein Albumin TSH Random Cortisol Hold Red Top Urine Color Urine Appearance Urine pH Ur Specific [place] Urine Protein Urine Glucose (UA) Urine Ketones Urine Blood Urine Nitrite Ur Leukocyte Esterase Urine Osmolality Ur Random Sodium Salicylates Acetaminophen COVID-19 (KHADRA) COVID-19 Clin Com Assessment and Plan (1) Hyponatremia: Status: Acute (2) Encephalopathy: Status: Acute Plan d#1 46yo F with glaucoma presenting after being found confused on the floor, noted to have euvolemic hyponatremia with dilute urine likely due to primary polydipsia # hypoNa - corrected too quickly, 17mEq/12hr [had been given 2L NS in ED]. started D5W 100 mL/hr, increased to 150 mL/hr and given 2 mcg ddAVP IV. Nephrology following. continue q4h sodium checks. # toxic-metabolic encephalopathy - suspect she had a hyponatremic seizure. neurologically normal at this time. monitor. # glaucoma - continue eye drops # VTE ppx: LMWH In my clinical judgment, the patient requires continued inpatient hospitalization for the following reasons: hypoNa, severe Quality Stroke Does the patient have a stroke diagnosis?: No VTE Prior VTE?: No VTE Risk Level:: Medical - moderate - high VTE Device Contraindication: Treatment Not Indicated VTE Drug Contraindication: N/A - Med Ordered
[2022-02-08 16:53] LABS: Sodium 138 mmol/L (135-145)
[2022-02-08] MEDS: Dextrose 5 % 1,000 ML 150 ML IVCONT (18:31)
[2022-02-08 19:03] LABS: Sodium 137 mmol/L (135-145)
[2022-02-08 19:49] VITALS: BP 126/60; PULSE 95; RESP 18; TEMP 37.1; O2SAT 98
[2022-02-08 20:59] LABS: Sodium 135 mmol/L (135-145)
[2022-02-08] MEDS: Brimonidine Tartrate 0.2% Oph 5 ML BOTTLE 1 DROP EYE-BOTH (21:04)
[2022-02-08] MEDS: Dorzolamide/Timolo 2.23%/0.68% 10 ML DRBTL 1 DROP EYE-BOTH (21:04)
[2022-02-08 22:25] LABS: Sodium 135 mmol/L (135-145)
[2022-02-09] MEDS: Enoxaparin Sodium 40 MG/0.4 ML SYRINGE SUBCUT (00:42)
[2022-02-09] MEDS: Dextrose 5 % 1,000 ML 150 ML IVCONT ×2 (00:43→06:40)
[2022-02-09 02:09] LABS: Sodium 131 mmol/L (135-145)
[2022-02-09 03:18] VITALS: BP 116/59; PULSE 77; RESP 14; TEMP 37.3; O2SAT 98
[2022-02-09 06:39] LABS: Hematocrit 30.6 % (37.0-47.0); Hemoglobin 10.5 g/dl (12.0-16.0); Mean Corpuscular HGB Conc 34.3 g/dl (31.0-35.0); Mean Corpuscular Hemoglobin 29.9 pg (27.0-33.0); Mean Corpuscular Volume 87.2 fL (80.0-98.0); Mean Platelet Volume 11.9 fL (9.4-12.3); Platelet Count 145 X10*3/uL (160-400); Red Blood Count 3.51 X10*6/uL (4.20-5.50); Red Cell Distribution Width 12.3 % (11.0-16.0); White Blood Count 9.2 X10*3/uL (4.8-10.8)
[2022-02-09 07:06] VITALS: BP 115/58; PULSE 87; RESP 18; TEMP 36.6; O2SAT 95
[2022-02-09 07:23] LABS: Anion Gap 7 (12-20); Blood Urea Nitrogen 7 mg/dL (9-16); Calcium 7.6 mg/dL (8.4-10.2); Carbon Dioxide 22 mmol/L (22-29); Chloride 104 mmol/L (96-108); Creatinine Clr Calc Pharmacy 102.9; Estimated Glomerular Filt Rate > 60; Glucose Random 135 mg/dL (60-115); Potassium 3.2 mmol/L (3.3-5.1); Sodium 130 mmol/L (135-145)
[2022-02-09] MEDS: 0.9 % Sodium Chloride Flush 3 ML SYRINGE IVFLUSH ×3 (08:51→21:09)
[2022-02-09] MEDS: Potassium Chloride ER 20 MEQ TAB.ER.PRT 40 MEQ PO (08:51)
[2022-02-09] MEDS: Brimonidine Tartrate 0.2% Oph 5 ML BOTTLE 1 DROP EYE-BOTH ×2 (08:52→20:57)
[2022-02-09] MEDS: Dorzolamide/Timolo 2.23%/0.68% 10 ML DRBTL 1 DROP EYE-BOTH ×2 (08:52→20:58)
[2022-02-09] MEDS: Cholecalciferol (Vitamin D3) 25 MCG TABLET PO (08:52)
--- NOTE | 2022-02-09 12:41 | P.PNIM_ITS ---
Subjective Subjective Date of Service: 02/09/22 Interval History: alert, oriented Na peaked at 139, down to 130 Review of Systems Review of Systems: Yes all other systems are reviewed and are negative Physical Exam Vital Signs: Vital Signs: Last Vital Signs Temp 97.9 F 02/09/22 07:06 Pulse 87 02/09/22 07:06 Resp 18 02/09/22 07:06 BP 115/58 L 02/09/22 07:06 Pulse Ox 95 02/09/22 07:06 O2 Del Method 02/09/22 07:06 BMI result Body Mass Index 34.2 Gen: in no acute distress HEENT: sclera anicteric, moist mucus membranes Neck: supple Lungs: clear to auscultation bilaterally Heart: regular rate and rhythm, no murmurs Abd: soft, non-tender, non-distended Ext: no edema Skin: warm/well-perfused Neuro: alert and oriented x3, no focal findings Psych: appropriate affect Objective Data Active Medications Acetaminophen (Acetaminophen 325 Mg Tablet) 650 mg PO Q6H PRN PRN Reason: Pain, Mild (Pain Scale 1-3) Brimonidine Tartrate (Brimonidine Tartrate 0.2% Oph 5 Ml Bottle) 1 drop EYE- BOTH BID [facility] Last Admin: 02/09/22 08:52 Dose: 1 drop Documented By: JANNETTE Dorzolamide/Timolol (Dorzolamide/Timolo 2.23%/0.68% 10 Ml Drbtl) 1 drop EYE- BOTH BID [facility] Last Admin: 02/09/22 08:52 Dose: 1 drop Documented By: JANNETTE Enoxaparin Sodium (Enoxaparin Sodium 40 Mg/0.4 Ml Syringe) 40 mg SUBCUT Q24H [facility] Last Admin: 02/09/22 00:42 Dose: 40 mg Documented By: BLAIR Melatonin (Melatonin 3 Mg Tablet) 6 mg PO BEDTIME PRN PRN Reason: Insomnia Non-Formulary Medication (Bimatoprost [Lumigan]) 1 drop EYE-BOTH BEDTIME [facility] Non-Formulary Medication (Cyclosporine [Restasis]) 1 drop EYE-BOTH BID [facility] Non-Formulary Medication (Norgestimate-Ethinyl Estradiol [Tri-Estarylla]) 1 tab PO DAILY [facility] Ondansetron HCl (Ondansetron Hcl 4 Mg/2 Ml Vial) 4 mg IVPUSH Q8H PRN PRN Reason: Nausea and Vomiting Pharmacy Consult (Consult Rx Perform Med Rec) 1 each MISCELLANE ONCE PRN PRN Reason: Consult order Sodium Chloride (0.9 % Sodium Chloride Flush 3 Ml Syringe) 3 ml IVFLUSH QSHIFT [facility] Last Admin: 02/09/22 08:51 Dose: 3 ml Documented By: JANNETTE Vitamin D (Cholecalciferol (Vitamin D3) 25 Mcg Tablet) 25 mcg PO DAILY [facility] Last Admin: 02/09/22 08:52 Dose: 25 mcg Documented By: JANNETTE Labs CBC & Chem 7: 02/09/22 05:50 02/09/22 05:50 Labs: Laboratory Results - last 24 hr 02/09/22 02/09/22 05:50 05:50 MCV 87.2 MCH 29.9 MCHC 34.3 RDW 12.3 Plt Count 145 L MPV 11.9 Absolute Nucleated RBC 0.000 Nucleated RBC % (auto) 0.0 Anion Gap 7 L Estim Creat Clear Calc 102.9 Estimated GFR > 60 Random Glucose 135 H Calcium 7.6 L Assessment and Plan (1) Hyponatremia: Status: Acute (2) Encephalopathy: Status: Acute Plan d#2 46yo F with glaucoma presenting after being found confused on the floor, noted to have euvolemic hyponatremia with dilute urine likely due to primary polydips ia # hypoNa - corrected too quickly yesterday so was started on D5W and given ddAVP. Na now appropriately 130. recheck this afternoon and again tomorrow AM. fluid- restrict to 1000 mL/d # toxic-metabolic encephalopathy - suspect she had a hyponatremic seizure. neurologically normal at this time. continue monitor. # glaucoma - continue eye drops # VTE ppx: LMWH # dispo: anticipate home tomorrow In my clinical judgment, the patient requires continued inpatient hospitalization for the following reasons: hypoNa Quality Stroke Does the patient have a stroke diagnosis?: No VTE Prior VTE?: No VTE Risk Level:: Medical - moderate - high VTE Device Contraindication: Treatment Not Indicated VTE Drug Contraindication: N/A - Med Ordered
--- NOTE | 2022-02-09 14:52 | MHC.CM.PN ---
HOME SATURDAY - SELF CARE
[2022-02-09 15:31] LABS: Sodium 140 mmol/L (135-145)
[2022-02-09 16:00] VITALS: BP 145/65; PULSE 90; RESP 16; TEMP 36.9; O2SAT 96
[2022-02-09] MEDS: Dextrose 5 % 1,000 ML 100 ML IVCONT (17:56)
[2022-02-09 19:24] LABS: Sodium 140 mmol/L (135-145)
[2022-02-09 20:00] VITALS: BP 128/64; PULSE 93; RESP 16; TEMP 37.3; O2SAT 96
[2022-02-09 22:13] LABS: Sodium 139 mmol/L (135-145)
[2022-02-10] MEDS: Enoxaparin Sodium 40 MG/0.4 ML SYRINGE SUBCUT (00:23)
[2022-02-10 03:10] VITALS: BP 134/71; PULSE 92; RESP 16; TEMP 37.3; O2SAT 96
[2022-02-10 05:23] LABS: Amphetamine Screen Urine Not Detected (Not Detect); Barbiturates, Urine Not Detected (Not Detect); Benzodiazepines Screen Urine Not Detected (Not Detect); Cannabinoid Screen Urine Not Detected (Not Detect); Cocaine Screen Urine Not Detected (Not Detect); Fentanyl, urine Not Detected (Not Detect); Opiate Screen Urine Not Detected (Not Detect); Phencyclidine Screen Urine Not Detected (Not Detect)
[2022-02-10 07:19] LABS: Anion Gap 10 (12-20); Blood Urea Nitrogen 8 mg/dL (9-16); Calcium 8.1 mg/dL (8.4-10.2); Carbon Dioxide 22 mmol/L (22-29); Chloride 108 mmol/L (96-108); Creatinine Clr Calc Pharmacy 93.4; Estimated Glomerular Filt Rate > 60; Glucose Random 105 mg/dL (60-115); Potassium 3.9 mmol/L (3.3-5.1); Sodium 136 mmol/L (135-145)
[2022-02-10] MEDS: 0.9 % Sodium Chloride Flush 3 ML SYRINGE IVFLUSH (07:44)
[2022-02-10] MEDS: Cholecalciferol (Vitamin D3) 25 MCG TABLET PO (07:44)
[2022-02-10] MEDS: Brimonidine Tartrate 0.2% Oph 5 ML BOTTLE 1 DROP EYE-BOTH (07:45)
[2022-02-10] MEDS: Dorzolamide/Timolo 2.23%/0.68% 10 ML DRBTL 1 DROP EYE-BOTH (07:45)
[2022-02-10 08:00] VITALS: BP 141/79; PULSE 82; RESP 18; TEMP 36.1; O2SAT 99
--- NOTE | 2022-02-10 11:42 | PM.PNNEP ---
Subjective Subjective Date of Service: 02/10/22 Interval history: alert, oriented Na has normalized, now 136 fells well Infiltrated IV left arm Physical Exam Vital Signs: Vital Signs: Last Vital Signs Temp 97 F 02/10/22 08:00 Pulse 82 02/10/22 08:00 Resp 18 02/10/22 08:00 BP 141/79 H 02/10/22 08:00 Pulse Ox 99 02/10/22 08:00 O2 Del Method 02/10/22 08:00 BMI result Body Mass Index 34.2 Const: Other: Feels well Chest: Other: Clear to auscultatioin Cardio: Other: RRR, no murmur GI: Other: Normal abd exam with bowel sounds present Extrem: Other: LUE with erythema and warmth to 1/3 up arm and swelling of LUE Objective Data Labs CBC & Chem 7: 02/09/22 05:50 02/10/22 05:46 Labs: Laboratory Results - last 24 hr 02/09/22 02/09/22 02/09/22 14:46 18:22 21:43 Sodium 140 140 139 Potassium Chloride Carbon Dioxide Anion Gap BUN Creatinine Estim Creat Clear Calc Estimated GFR Random Glucose Calcium Urine Opiates Screen Urine Fentanyl Screen Ur Barbiturates Screen Ur Phencyclidine Scrn Ur Amphetamines Screen U Benzodiazepines Scrn Urine Cocaine Screen U Marijuana (THC) Screen 02/10/22 02/10/22 05:00 05:46 Sodium 136 Potassium 3.9 D Chloride 108 Carbon Dioxide 22 Anion Gap 10 L BUN 8 L Creatinine 0.76 Estim Creat Clear Calc 93.4 Estimated GFR > 60 Random Glucose 105 Calcium 8.1 L D Urine Opiates Screen Not Detected Urine Fentanyl Screen Not Detected Ur Barbiturates Screen Not Detected Ur Phencyclidine Scrn Not Detected Ur Amphetamines Screen Not Detected U Benzodiazepines Scrn Not Detected Urine Cocaine Screen Not Detected U Marijuana (THC) Screen Not Detected Procedures Date of Service Date of Service: 02/10/22 Assessment & Plan Assessment and plan (1) Acute hyponatremia: Status: Acute Plan Sodium normal now Acute hyponatremia resolved She knows to avoid excessive oral fluid intake Her LUE has area of redness, warmth concerning for cellulitis related to infiltrated IV: consider a course of keflex I will sign off Call if further renal help needed Time Spent With Patient Time: Total time managing care of this patient today ____ minutes. Progress Note: Quality Stroke Does the patient have a stroke diagnosis?: No
--- NOTE | 2022-02-10 13:46 | PM.DS ---
DS: Providers Provider Date of Service: 02/10/22 Date of admission: 02/07/22 23:56 Date of discharge: 02/10/22 Primary care physician: Iona Benitez MD Consults: 02/08/22 00:21 Consult to Nephrology Routine Consulting Provider: Keon Myers Reason for consultation: hyponatremia DS: Diagnosis Discharge Diagnosis (1) Acute hyponatremia: Status: Acute (2) Cellulitis: Status: Acute (3) Water intoxication: Status: Acute (4) Metabolic encephalopathy: Status: Acute DS: Summary Hospital Course Hospital Course: from admission H+P by hospitalist Dereje Gonzalez, 02/08/22: This is a 46-year-old female with pertinent history of glaucoma who was brought to the emergency department for evaluation of confusion.? As per the sister at bedside, patient was not answering the phone and she used his spare villa to go into the patient's house.? They found her on the floor, confused and with ?shaking/chills of the upper extremity.? No tongue bite, no urinary or bowel incontinence.? Patient also complains of nausea and vomiting throughout the day.? Patient states she was scheduled for colonoscopy tomorrow but had not taken the prep. As per chart review, EMS found empty bottle of Pinrid? in her backpack .? At the time of my evaluation, patient answering occasional questions with yes or no responses.? Lethargy present and patient unable to take part in full conversation, she is oriented to place but disoriented to time.? No loss of consciousness. In the emergency department sodium was found to be 120 This 46yo F with glaucoma presented after being found confused on the floor. 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 Her mental status returned to normal quickly, and she admitted to excess water intake. It is possible that she had a hyponatremic seizure at home. She was placed on water restriction. Her sodium actually corrected too quickly, so she did get some D5W and ddAVP to reverse the over-correction. Water restriction was canceled. Her sodium stabilized at 136. She was discharged home with instructions to avoid excess water intake [maximum 2L/d] and to recheck her serum sodium on 02/12/22. She did develop erythema and warmth of the LUE at the site of an IV and so was prescribed doxycycline for cellulitis. Time Spent with Patient Time attestation: Total time managing care of this patient today 35 _ minutes. Discharge coordination time: Greater than 30 minutes Quality: Safe Use of Opioids Does Pt have an Active Cancer Diagnosis on the Problem List?: No Quality: Stroke Does the patient have a stroke diagnosis?: No Physical Exam Vital Signs: Vital Signs: Last Vital Signs Temp 97 F 02/10/22 08:00 Pulse 82 02/10/22 08:00 Resp 18 02/10/22 08:00 BP 141/79 H 02/10/22 08:00 Pulse Ox 99 02/10/22 08:00 O2 Del Method 02/10/22 08:00 BMI result Body Mass Index 34.2 Gen: in no acute distress HEENT: sclera anicteric, moist mucus membranes Neck: supple Lungs: clear to auscultation bilaterally Heart: regular rate and rhythm, no murmurs Abd: soft, non-tender, non-distended Ext: no edema Skin: LUE with erythema and warmth Neuro: alert and oriented x3, no focal findings Psych: appropriate affect DS: Data Data Completed and Pending Completed studies during hospitalization [Text1]: ITS Impressions Head CT 02/07/22 19:13 IMPRESSION: No acute intracranial abnormality including hemorrhage, mass effect, hydrocephalus, or acute territorial edematous infarction. Above impression was communicated to Dr. Peng on 02/07/2022 at 7:22 PM Head/Neck CTA 02/07/22 19:22 IMPRESSION: 1. No arterial high grade stenosis or large vessel occlusion in the head or neck. 2. Thyromegaly. Recommend correlation with thyroid function tests. Impression #[address] Peng on 02/07/2022 at 7:39 PM. Laboratory Tests 02/07/22 02/07/22 02/07/22 19:09 19:22 20:26 WBC RBC Hgb Hct MCV MCH MCHC RDW Plt Count MPV Immature Gran % (Auto) Neut % (Auto) Lymph % (Auto) [place] % (Auto) Eos % (Auto) Baso % (Auto) Lymph # (Auto) [place] # (Auto) Eos # (Auto) Baso # (Auto) Abs Immat Gran (auto) Absolute Neuts (auto) Absolute Nucleated RBC Nucleated RBC % (auto) PT 12.0 Whole Blood PT 11.9 INR 1.0 Whole Blood INR 1.0 Sodium Potassium Chloride Carbon Dioxide Anion Gap BUN Creatinine Estim Creat Clear Calc Estimated GFR POC Glucose 132 H Random Glucose Osmolality Calcium Total Bilirubin Direct Bilirubin AST ALT Alkaline Phosphatase Troponin I High Sens Total Protein Albumin TSH Random Cortisol Hold Red Top Urine Color Urine Appearance Urine pH Ur Specific [place] Urine Protein Urine Glucose (UA) Urine Ketones Urine Blood Urine Nitrite Ur Leukocyte Esterase Urine Osmolality Ur Random Sodium Salicylates Urine Opiates Screen Urine Fentanyl Screen Acetaminophen Ur Barbiturates Screen Ur Phencyclidine Scrn Ur Amphetamines Screen U Benzodiazepines Scrn Urine Cocaine Screen U Marijuana (THC) Screen COVID-19 (KHADRA) COVIDL2 02/07/22 02/07/22 02/07/22 20:26 20:26 20:26 WBC RBC Hgb Hct MCV MCH MCHC RDW Plt Count MPV Immature Gran % (Auto) Neut % (Auto) Lymph % (Auto) [place] % (Auto) Eos % (Auto) Baso % (Auto) Lymph # (Auto) [place] # (Auto) Eos # (Auto) Baso # (Auto) Abs Immat Gran (auto) Absolute Neuts (auto) Absolute Nucleated RBC Nucleated RBC % (auto) PT Whole Blood PT INR Whole Blood INR Sodium 120 L* Potassium 3.9 Chloride 89 L Carbon Dioxide 20 L Anion Gap 14 BUN 6 L Creatinine 0.68 Estim Creat Clear Calc 93.4 Estimated GFR > 60 POC Glucose Random Glucose 115 Osmolality Calcium 7.6 L Total Bilirubin Direct Bilirubin AST ALT Alkaline Phosphatase Troponin I High Sens < 3.5 Total Protein Albumin TSH Random Cortisol Hold Red Top See Note Urine Color Urine Appearance Urine pH Ur Specific [place] Urine Protein Urine Glucose (UA) Urine Ketones Urine Blood Urine Nitrite Ur Leukocyte Esterase Urine Osmolality Ur Random Sodium Salicylates Urine Opiates Screen Urine Fentanyl Screen Acetaminophen Ur Barbiturates Screen Ur Phencyclidine Scrn Ur Amphetamines Screen U Benzodiazepines Scrn Urine Cocaine Screen U Marijuana (THC) Screen COVID-19 (KHDARA) COVIDL2 02/07/22 02/07/22 02/07/22 20:26 20:27 20:27 WBC 10.0 RBC 4.34 Hgb 13.1 Hct 35.4 L MCV 81.6 MCH 30.2 MCHC 37.0 H RDW 11.8 Plt Count 207 MPV 11.1 Immature Gran % (Auto) 0.3 Neut % (Auto) 87.2 H Lymph % (Auto) 9.[address] [place] % (Auto) 2.5 Eos % (Auto) 0.0 Baso % (Auto) 0.2 Lymph # (Auto) 1.[address] [place] # (Auto) 0.3 Eos # (Auto) 0.0 Baso # (Auto) 0.0 Abs Immat Gran (auto) 0.03 Absolute Neuts (auto) 8.8 H Absolute Nucleated RBC 0.000 Nucleated RBC % (auto) 0.0 PT Whole Blood PT INR Whole Blood INR Sodium Potassium Chloride Carbon Dioxide Anion Gap BUN Creatinine Estim Creat Clear Calc Estimated GFR POC Glucose Random Glucose Osmolality 245 L Calcium Total Bilirubin Direct Bilirubin AST ALT Alkaline Phosphatase Troponin I High Sens Total Protein Albumin TSH Random Cortisol Hold Red Top Urine Color Urine Appearance Urine pH Ur Specific [place] Urine Protein Urine Glucose (UA) Urine Ketones Urine Blood Urine Nitrite Ur Leukocyte Esterase Urine Osmolality Ur Random Sodium Salicylates Urine Opiates Screen Urine Fentanyl Screen Acetaminophen Ur Barbiturates Screen Ur Phencyclidine Scrn Ur Amphetamines Screen U Benzodiazepines Scrn Urine Cocaine Screen U Marijuana (THC) Screen COVID-19 (KHADRA) Negative COVID-19 Clin Com See Note 02/07/22 02/07/22 02/07/22 21:29 21:29 Unknown WBC RBC Hgb Hct MCV MCH MCHC RDW Plt Count MPV Immature Gran % (Auto) Neut % (Auto) Lymph % (Auto) [place] % (Auto) Eos % (Auto) Baso % (Auto) Lymph # (Auto) [place] # (Auto) Eos # (Auto) Baso # (Auto) Abs Immat Gran (auto) Absolute Neuts (auto) Absolute Nucleated RBC Nucleated RBC % (auto) PT Whole Blood PT INR Whole Blood INR Sodium Potassium Chloride Carbon Dioxide Anion Gap BUN Creatinine Estim Creat Clear Calc Estimated GFR POC Glucose Random Glucose Osmolality Calcium Total Bilirubin Direct Bilirubin AST ALT Alkaline Phosphatase Troponin I High Sens Total Protein Albumin TSH Random Cortisol Hold Red Top Urine Color Yellow Urine Appearance Clear Urine pH 7.5 Ur Specific [place] 1.015 Urine Protein Negative Urine Glucose (UA) Negative Urine Ketones Negative Urine Blood Negative Urine Nitrite Negative Ur Leukocyte Esterase Negative Urine Osmolality 121 L Ur Random Sodium 26.0 Salicylates Urine Opiates Screen Urine Fentanyl Screen Acetaminophen Ur Barbiturates Screen Ur Phencyclidine Scrn Ur Amphetamines Screen U Benzodiazepines Scrn Urine Cocaine Screen U Marijuana (THC) Screen COVID-19 (KHADRA) COVID-19 Clin Com 02/08/22 02/08/22 02/08/22 00:42 02:03 06:39 WBC 16.0 H RBC 3.99 L Hgb 12.1 Hct 33.6 L MCV 84.2 MCH 30.3 MCHC 36.0 H RDW 12.0 Plt Count 180 MPV 11.7 Immature Gran % (Auto) 0.4 Neut % (Auto) 88.0 H Lymph % (Auto) 6.[address] [place] % (Auto) 5.3 Eos % (Auto) 0.0 Baso % (Auto) 0.3 Lymph # (Auto) 1.[address] [place] # (Auto) 0.8 Eos # (Auto) 0.0 Baso # (Auto) 0.0 Abs Immat Gran (auto) 0.07 H Absolute Neuts (auto) 14.0 H Absolute Nucleated RBC 0.000 Nucleated RBC % (auto) 0.0 PT Whole Blood PT INR Whole Blood INR Sodium 129 L 130 L Potassium 3.8 3.7 Chloride 100 101 Carbon Dioxide 18 L 19 L Anion Gap 15 14 BUN 5 L Creatinine 0.72 Estim Creat Clear Calc 98.6 Estimated GFR > 60 POC Glucose Random Glucose 129 H Osmolality Calcium 7.7 L Total Bilirubin 0.9 Direct Bilirubin 0.3 AST 16 ALT 11 Alkaline Phosphatase 75 Troponin I High Sens Total Protein 5.8 L Albumin 3.3 L TSH Random Cortisol Hold Red Top Urine Color Urine Appearance Urine pH Ur Specific [place] Urine Protein Urine Glucose (UA) Urine Ketones Urine Blood Urine Nitrite Ur Leukocyte Esterase Urine Osmolality Ur Random Sodium Salicylates Urine Opiates Screen Urine Fentanyl Screen Acetaminophen Ur Barbiturates Screen Ur Phencyclidine Scrn Ur Amphetamines Screen U Benzodiazepines Scrn Urine Cocaine Screen U Marijuana (THC) Screen COVID-19 (KHADRA) COVID-19 Clin Com 02/08/22 02/08/22 02/08/22 06:39 10:03 10:03 WBC RBC Hgb Hct MCV MCH MCHC RDW Plt Count MPV Immature Gran % (Auto) Neut % (Auto) Lymph % (Auto) [place] % (Auto) Eos % (Auto) Baso % (Auto) Lymph # (Auto) [place] # (Auto) Eos # (Auto) Baso # (Auto) Abs Immat Gran (auto) Absolute Neuts (auto) Absolute Nucleated RBC Nucleated RBC % (auto) PT Whole Blood PT INR Whole Blood INR Sodium 134 L 137 Potassium 3.5 Chloride 105 Carbon Dioxide 20 L Anion Gap 13 BUN 5 L Creatinine 0.72 Estim Creat Clear Calc 98.6 Estimated GFR > 60 POC Glucose Random Glucose 122 H Osmolality Calcium 7.9 L Total Bilirubin Direct Bilirubin AST ALT Alkaline Phosphatase Troponin I High Sens Total Protein Albumin TSH 0.36 Random Cortisol 23.1 Hold Red Top Urine Color Urine Appearance Urine pH Ur Specific [place] Urine Protein Urine Glucose (UA) Urine Ketones Urine Blood Urine Nitrite Ur Leukocyte Esterase Urine Osmolality Ur Random Sodium Salicylates < 5.0 L Urine Opiates Screen Urine Fentanyl Screen Acetaminophen < 1 Ur Barbiturates Screen Ur Phencyclidine Scrn Ur Amphetamines Screen U Benzodiazepines Scrn Urine Cocaine Screen U Marijuana (THC) Screen COVID-19 (KHADRA) COVID-19 [employer] [place] 02/08/22 02/08/22 02/08/22 10:04 14:00 16:30 WBC RBC Hgb Hct MCV MCH MCHC RDW Plt Count MPV Immature Gran % (Auto) Neut % (Auto) Lymph % (Auto) [place] % (Auto) Eos % (Auto) Baso % (Auto) Lymph # (Auto) [place] # (Auto) Eos # (Auto) Baso # (Auto) Abs Immat Gran (auto) Absolute Neuts (auto) Absolute Nucleated RBC Nucleated RBC % (auto) PT Whole Blood PT INR Whole Blood INR Sodium 139 138 Potassium Chloride Carbon Dioxide Anion Gap BUN Creatinine Estim Creat Clear Calc Estimated GFR POC Glucose Random Glucose Osmolality 284 Calcium Total Bilirubin Direct Bilirubin AST ALT Alkaline Phosphatase Troponin I High Sens Total Protein Albumin TSH Random Cortisol Hold Red Top Urine Color Urine Appearance Urine pH Ur Specific [place] Urine Protein Urine Glucose (UA) Urine Ketones Urine Blood Urine Nitrite Ur Leukocyte Esterase Urine Osmolality Ur Random Sodium Salicylates Urine Opiates Screen Urine Fentanyl Screen Acetaminophen Ur Barbiturates Screen Ur Phencyclidine Scrn Ur Amphetamines Screen U Benzodiazepines Scrn Urine Cocaine Screen U Marijuana (THC) Screen COVID-19 (KHADRA) COVID-19 [employer] 02/08/22 02/08/22 02/08/22 18:36 20:14 21:57 WBC RBC Hgb Hct MCV MCH MCHC RDW Plt Count MPV Immature Gran % (Auto) Neut % (Auto) Lymph % (Auto) [place] % (Auto) Eos % (Auto) Baso % (Auto) Lymph # (Auto) [place] # (Auto) Eos # (Auto) Baso # (Auto) Abs Immat Gran (auto) Absolute Neuts (auto) Absolute Nucleated RBC Nucleated RBC % (auto) PT Whole Blood PT INR Whole Blood INR Sodium 137 135 135 Potassium Chloride Carbon Dioxide Anion Gap BUN Creatinine Estim Creat Clear Calc Estimated GFR POC Glucose Random Glucose Osmolality Calcium Total Bilirubin Direct Bilirubin AST ALT Alkaline Phosphatase Troponin I High Sens Total Protein Albumin TSH Random Cortisol Hold Red Top Urine Color Urine Appearance Urine pH Ur Specific [place] Urine Protein Urine Glucose (UA) Urine Ketones Urine Blood Urine Nitrite Ur Leukocyte Esterase Urine Osmolality Ur Random Sodium Salicylates Urine Opiates Screen Urine Fentanyl Screen Acetaminophen Ur Barbiturates Screen Ur Phencyclidine Scrn Ur Amphetamines Screen U Benzodiazepines Scrn Urine Cocaine Screen U Marijuana (THC) Screen COVID-19 (KHADRA) COVID-19 [employer] 02/09/22 02/09/22 02/09/22 01:40 05:50 05:50 WBC 9.2 RBC 3.51 L Hgb 10.5 L Hct 30.6 L MCV 87.2 MCH 29.9 MCHC 34.3 RDW 12.3 Plt Count 145 L MPV 11.9 Immature Gran % (Auto) Neut % (Auto) Lymph % (Auto) [place] % (Auto) Eos % (Auto) Baso % (Auto) Lymph # (Auto) [place] # (Auto) Eos # (Auto) Baso # (Auto) Abs Immat Gran (auto) Absolute Neuts (auto) Absolute Nucleated RBC 0.000 Nucleated RBC % (auto) 0.0 PT Whole Blood PT INR Whole Blood INR Sodium 131 L 130 L Potassium 3.2 L Chloride 104 Carbon Dioxide 22 Anion Gap 7 L BUN 7 L Creatinine 0.69 Estim Creat Clear Calc 102.9 Estimated GFR > 60 POC Glucose Random Glucose 135 H Osmolality Calcium 7.6 L Total Bilirubin Direct Bilirubin AST ALT Alkaline Phosphatase Troponin I High Sens Total Protein Albumin TSH Random Cortisol Hold Red Top Urine Color Urine Appearance Urine pH Ur Specific [place] Urine Protein Urine Glucose (UA) Urine Ketones Urine Blood Urine Nitrite Ur Leukocyte Esterase Urine Osmolality Ur Random Sodium Salicylates Urine Opiates Screen Urine Fentanyl Screen Acetaminophen Ur Barbiturates Screen Ur Phencyclidine Scrn Ur Amphetamines Screen U Benzodiazepines Scrn Urine Cocaine Screen U Marijuana (THC) Screen COVID-19 (KHADRA) COVID-19 Clin Com 02/09/22 02/09/22 02/09/22 14:46 18:22 21:43 WBC RBC Hgb Hct MCV MCH MCHC RDW Plt Count MPV Immature Gran % (Auto) Neut % (Auto) Lymph % (Auto) [place] % (Auto) Eos % (Auto) Baso % (Auto) Lymph # (Auto) [place] # (Auto) Eos # (Auto) Baso # (Auto) Abs Immat Gran (auto) Absolute Neuts (auto) Absolute Nucleated RBC Nucleated RBC % (auto) PT Whole Blood PT INR Whole Blood INR Sodium 140 140 139 Potassium Chloride Carbon Dioxide Anion Gap BUN Creatinine Estim Creat Clear Calc Estimated GFR POC Glucose Random Glucose Osmolality Calcium Total Bilirubin Direct Bilirubin AST ALT Alkaline Phosphatase Troponin I High Sens Total Protein Albumin TSH Random Cortisol Hold Red Top Urine Color Urine Appearance Urine pH Ur Specific [place] Urine Protein Urine Glucose (UA) Urine Ketones Urine Blood Urine Nitrite Ur Leukocyte Esterase Urine Osmolality Ur Random Sodium Salicylates Urine Opiates Screen Urine Fentanyl Screen Acetaminophen Ur Barbiturates Screen Ur Phencyclidine Scrn Ur Amphetamines Screen U Benzodiazepines Scrn Urine Cocaine Screen U Marijuana (THC) Screen COVID-19 (KHADRA) COVID-19 Clin Com 02/10/22 02/10/22 05:00 05:46 WBC RBC Hgb Hct MCV MCH MCHC RDW Plt Count MPV Immature Gran % (Auto) Neut % (Auto) Lymph % (Auto) [place] % (Auto) Eos % (Auto) Baso % (Auto) Lymph # (Auto) [place] # (Auto) Eos # (Auto) Baso # (Auto) Abs Immat Gran (auto) Absolute Neuts (auto) Absolute Nucleated RBC Nucleated RBC % (auto) PT Whole Blood PT INR Whole Blood INR Sodium 136 Potassium 3.9 D Chloride 108 Carbon Dioxide 22 Anion Gap 10 L BUN 8 L Creatinine 0.76 Estim Creat Clear Calc 93.4 Estimated GFR > 60 POC Glucose Random Glucose 105 Osmolality Calcium 8.1 L D Total Bilirubin Direct Bilirubin AST ALT Alkaline Phosphatase Troponin I High Sens Total Protein Albumin TSH Random Cortisol Hold Red Top Urine Color Urine Appearance Urine pH Ur Specific [place] Urine Protein Urine Glucose (UA) Urine Ketones Urine Blood Urine Nitrite Ur Leukocyte Esterase Urine Osmolality Ur Random Sodium Salicylates Urine Opiates Screen Not Detected Urine Fentanyl Screen Not Detected Acetaminophen Ur Barbiturates Screen Not Detected Ur Phencyclidine Scrn Not Detected Ur Amphetamines Screen Not Detected U Benzodiazepines Scrn Not Detected Urine Cocaine Screen Not Detected U Marijuana (THC) Screen Not Detected COVID-19 (KHADRA) COVID-19 Clin [facility] Discharge Plan Discharge Anticipated Discharge Date/Time: 02/10/22 13:37 Patient Disposition: Home, Self-Care Discharge Diagnosis: hyponatremia due to excess water intake IV site cellulitis Referrals: Iona Benitez MD [Primary Care Provider] - 1 Week Discharge Medications: New doxycycline monohydrate 100 mg tablet 100 mg PO BID Qty: 14 0RF Continued brimonidine 0.2 % drops 1 drp ophthalmic (eye) BID dorzolamide-timolol 22.3-6.8 mg/mL drops 1 drp ophthalmic (eye) BID norgestimate-ethinyl estradiol [Tri-Estarylla] 0.18/0.215/0.25 mg-35 mcg (28) tablet 1 tab PO DAILY cyclosporine [Restasis] 0.05 % dropperette 1 drp ophthalmic (eye) BID Lum[place] 0.01 % drops 1 drp ophthalmic (eye) BEDTIME cholecalciferol (vitamin D3) 25 mcg (1,000 unit) Tablet 25 mcg PO DAILY Discharge Orders: Discharge Order (Routine); Ordered 02/10/22 Ordered By: Dorita Mcmanus Diet: <2000 mL fluid/d Activity on Discharge: As tolerated Stand Alone Forms: Patient Portal Discharge page Other Ambulatory Orders: Sodium (Routine) Timeframe: 2 Days Facility: [facility] - Location: Laboratory Ordered By: Dorita Mcmanus Care Plan Goals: prevent hyponatremia cure L arm infection Health Concerns: hyponatremia due to excess water intake IV site cellulitis Plan of Treatment: restrict fluid to 2000 mL/day recheck sodium level on 02/12/22 take doxycycline 100 mg twice daily x 7 days Please follow up with your primary care doctor within 1 week. Return to the hospital if you experience recurrent or worsening symptoms. Assessment: See Discharge Summary.
--- NOTE | 2022-02-10 13:56 | MHC.CM.PN ---
DP: PT MEDICALLY CLEARED FOR DC HOME, NO SERVICES. RN AWARE. FAMILY WILL TRANSPORT HOME.
== END 2022-02-10 15:40 | disposition home or self-care (01) | DRG 640 ==
LOC: HO.ED 20:43 → HO.EDOVER 02-08 00:01 → HO.S3 02-08 00:20
PROVIDERS: Admitting Provider Student in an Organized Health Care Education/Training Program; Emergency Provider Internal Medicine; PCP Family Medicine; Visit Provider Family Medicine
DX: E87.1 Hypo-osmolality and hyponatremia (principal); G92.8 Other toxic encephalopathy; L03.114 Cellulitis of left upper limb; T82.7XXA Infection and inflammatory reaction due to other cardiac and vascular devices, implants and grafts, initial encounter; E87.6 Hypokalemia; E86.1 Hypovolemia; Z20.822 Contact with and (suspected) exposure to COVID-19; Z87.891 Personal history of nicotine dependence; Z79.3 Long term (current) use of hormonal contraceptives; Z79.899 Other long term (current) drug therapy
CPT/HCPCS: 36415; 70450; 70496; 70498; 80048; 80051; 80076; 80143; 80179; 80307; 81003; 82533; 82947; 83930; 83935; 84295; 84300; 84443; 84484; 85025; 85027; 85610; 87635; 93005; 99285; J1650; J2250; J2597; Q9967